=== PATIENT | female | born 1990 | race Caucasian/White ===

== ENCOUNTER 2016-11-09 05:10 | Emergency (ER) | payer OTHER, MEDICAID ==
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
[2016-11-09 10:14] VITALS: BP 97/57
--- NOTE | 2016-11-09 17:25 | US ---
Limited obstetrical ultrasound: Multiple real-time images were obtained transabdominally. Comparison: No previous obstetrical ultrasound. Dates: Current ultrasound: [facility] 03/22/17, gestational age 21 weeks 0 days presentation: Mobile Placenta: Posterior, no findings of placenta previa or abruption. Amniotic fluid: ERIN 11.96 cm Measurements: BPD: 4.79 cm - 20 weeks 4 days Head circumference: 18.12 cm - 20 weeks 4 days Abdominal circumference: 15.92 cm - 21 weeks 1 day Femur length: 3.56 cm - 21 weeks 2 days Estimated weight: 396 g (0 lbs. 14 oz.), estimated weight at the 48th percentile for age by current ultrasound Heart rate: 148 bpm Cervical length: 3.5 cm Impression: 1. Single intrauterine fetus in mobile presentation. Dates as noted above. 2. No acute abnormality is seen. Diagnostic code #1 I agree with preliminary report issued by [facility] (report finalized on 11/09/16, 7:42 AM Central Time)
== END 2016-11-09 06:50 | disposition home or self-care (01) ==
LOC: JD.ED 05:10
DX: O9A.212 Injury, poisoning and certain other consequences of external causes complicating pregnancy, second trimester (principal); S01.412A Laceration without foreign body of left cheek and temporomandibular area, initial encounter; S16.1XXA Strain of muscle, fascia and tendon at neck level, initial encounter; S60.512A Abrasion of left hand, initial encounter; S60.511A Abrasion of right hand, initial encounter; F41.9 Anxiety disorder, unspecified; F32.9 Major depressive disorder, single episode, unspecified; F17.210 Nicotine dependence, cigarettes, uncomplicated; Z3A.21 21 weeks gestation of pregnancy; V48.5XXA Car driver injured in noncollision transport accident in traffic accident, initial encounter
CPT/HCPCS: 12011; 76815; 76815-26; 99283; 99284-25

== ENCOUNTER 2017-03-02 07:11 | Inpatient (IN) | payer MEDICAID, OTHER ==
[2017-03-02] MEDS ORDERED: Nalbuphine 20 MG/1 ML Amp IVPUSH PRN (07:20)
[2017-03-02] MEDS ORDERED: Sodium Chloride 0.9% 10 ML Syringe FLUSH PRN (07:20)
[2017-03-02] MEDS ORDERED: Ondansetron 4 MG/2 ML SDV IVPUSH PRN (07:20)
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
[2017-03-02] MEDS ORDERED: Oxytocin/Lactated Ringers 10 UNIT/1,000 ML BAG IV SCH ×2 (07:30)
[2017-03-02] MEDS: Lactated Ringers 1,000 ML IV SCH ×3 (08:09→14:09)
--- NOTE | 2017-03-02 12:11 | PCM.PNLD ---
Labor Progress Note - VS & Meds Vital Signs: Last Vital Signs Temp 36.9 C 03/02/17 07:21 Pulse 94 03/02/17 07:21 Resp 18 03/02/17 07:21 BP 101/60 03/02/17 07:21 Pulse Ox 97 03/02/17 07:21 Active Medications: Current Medications Lactated Ringer's (Ringers, Lactated) 1,000 mls @ 40 mls/hr IV ASDIRECTED KSENIA Last Admin: 03/02/17 08:09 Dose: 40 mls/hr Oxytocin/Lactated Ringer's (Pitocin In Lr 10 Units/1,000 Ml) 10 unit in 1,000 mls @ 500 mls/hr IV .CONTINUOUS KSENIA Oxytocin/Lactated Ringer's (Pitocin In Lr 10 Units/1,000 Ml) 10 unit in 1,000 mls @ 12 mls/hr IV TITRATE KSENIA; 2 MUNITS/MIN PRN Reason: Protocol Last Titration: 03/02/17 11:55 Dose: 8 munits/min, 48 mls/hr Nalbuphine HCl (Nubain) 10 mg IVPUSH Q2H PRN PRN Reason: Pain (moderate 4-6) Ondansetron HCl (Zofran) 4 mg IVPUSH Q4H PRN PRN Reason: Nausea/Vomiting Sodium Chloride (Saline Flush) 10 ml FLUSH ASDIRECTED PRN PRN Reason: Keep Vein Open - Uterine Contractions Uterine Monitoring Mode: External Frederic Contraction Intensity: Moderate Uterine Resting Tone: Soft - Monitoring Monitor Mode: External Ultrasound Heart Rate (FHR) Variability: Moderate (6-25 bmp) Accelerations: Present, 15x15 Decelerations: None Strip Review: Category I - Vaginal Exam Dilation (cm): 3 Effacement (Percent): 80 Station: 0 Cervical Position: Midposition - Labor Progress (Free Text) Labor Progress: Patient doing well. Pitocin at 6. AROM done with release of clear fluid. Continue present management.
[2017-03-02] MEDS ORDERED: ePHEDrine 50 MG/ML SDV IVPUSH PRN (13:24)
[2017-03-02] MEDS ORDERED: diphenhydrAMINE 50 MG/ML SDV IVPUSH PRN (13:24)
[2017-03-02] MEDS ORDERED: fentaNYL 100 MCG/2 ML SDV EPIDUR PRN (13:24)
[2017-03-02] MEDS ORDERED: Bupivacaine/fentaNYL/NS 100 ML Bag EPIDUR SCH (13:30)
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
--- NOTE | 2017-03-02 17:40 | PCM.DEL ---
L & D Note - General Info Date of Service: 03/02/17 - Delivery Note Labor: Induced by ARM, Induced by Oxytocin Delivery Outcome: Livebirth Infant Delivery Method: Spontaneous Vaginal Delivery Infant Delivery Mode: Spontaneous Presentation: Left Occiput Anterior (REUBEN) Nuchal Cord: None Anesthesia Type: Epidural Amniotic Fluid Description: Clear Episiotomy Type: None Laceration: 2nd Degree, Labial (right side) Suture type: Vicryl Suture size: 3-0 Placenta: Intact, Spontaneous Cord: 3 Vessels Estimated Blood Loss: 250 Resuscitation Needed: Yes : Suctioned, Bulb Syringe, Stimulated, Warmed, [place] Used, Warmer Used Score 1 min: 8 Score 5 min: 9 Delivery Comments (Free Text/Narrative):: Patient found to be complete and began pushing. With maternal pushing effort head delivered from an REUBEN presentation. No nuchal cord present. With gentle downward traction the shoulders and body delivered. Infant placed on maternal abdomen. Cord clamped and cut. Cord blood obtained. Placenta allowed time to separate and then expelled. Inspection of the perineum showed a 2nd degree labia laceration repaired with a 3-0 vicryl. Due to IUGR concerns cord segment sent to lab and placenta sent to pathology for evaluation - Patient Data Vitals - Most Recent: Last Vital Signs Temp 36.9 C 03/02/17 07:21 Pulse 94 03/02/17 07:21 Resp 18 03/02/17 13:51 BP 101/60 03/02/17 07:21 Pulse Ox 97 03/02/17 13:51 Weight - Most Recent: 62.596 kg I&O - Last 24 Hours: Intake & Output 03/02/17 03/02/17 03/02/17 06:59 14:59 22:59 Intake Total 1999 1600 Balance 1999 1600 Lab Results Last 24 Hours: Laboratory Results - last 24 hr 03/02/17 03/02/17 Range/Units 07:35 07:35 WBC 13.08 H (3.98-10.04) K/mm3 RBC 3.89 L (3.98-5.22) M/mm3 Hgb 11.7 (11.2-15.7) gm/L Hct 34.4 (34.1-44.9) % MCV 88.4 (79.4-94.8) fl MCH 30.1 (25.6-32.2) pg MCHC 34.0 (32.2-35.5) g/dl RDW Std Deviation 39.7 (36.4-46.3) fL Plt Count 239 (182-369) K/mm3 MPV 10.6 (9.4-12.3) fl Blood Type B NEGATIVE Gel Antibody Screen Positive Med Orders - Current: Current Medications Diphenhydramine HCl (Benadryl) 25 mg IVPUSH Q6H PRN PRN Reason: pruritis Ephedrine Sulfate (Ephedrine Sulfate) 5 mg IVPUSH ASDIRECTED PRN PRN Reason: Hypotension Fentanyl (Sublimaze) 100 mcg EPIDUR Q3H PRN PRN Reason: Pain Last Admin: 03/02/17 13:52 Dose: 100 mcg Fentanyl/Bupivacaine HCl (Fentanyl/Bupivacaine/Ns 2 Mcg-0.125% 100 Ml) 100 ml EPIDUR ASDIRECTED KSENIA Last Admin: 03/02/17 13:52 Dose: 100 ml Lactated Ringer's (Ringers, Lactated) 1,000 mls @ 40 mls/hr IV ASDIRECTED KSENIA Last Admin: 03/02/17 14:09 Dose: 40 mls/hr Oxytocin/Lactated Ringer's (Pitocin In Lr 10 Units/1,000 Ml) 10 unit in 1,000 mls @ 500 mls/hr IV .CONTINUOUS KSENIA Oxytocin/Lactated Ringer's (Pitocin In Lr 10 Units/1,000 Ml) 10 unit in 1,000 mls @ 12 mls/hr IV TITRATE KSENIA; 2 MUNITS/MIN PRN Reason: Protocol Last Titration: 03/02/17 16:29 Dose: 6 munits/min, 36 mls/hr Nalbuphine HCl (Nubain) 10 mg IVPUSH Q2H PRN PRN Reason: Pain (moderate 4-6) Ondansetron HCl (Zofran) 4 mg IVPUSH Q4H PRN PRN Reason: Nausea/Vomiting Sodium Chloride (Saline Flush) 10 ml FLUSH ASDIRECTED PRN PRN Reason: Keep Vein Open - Problem List & Annotations (1) 37 weeks gestation of SNOMED Code(s): 03349009 Code(s): Z3A.37 - 37 WEEKS GESTATION OF Status: Acute Current Visit: Yes (2) IUGR (intrauterine growth restriction) SNOMED Code(s): 86151849 Code(s): QQO4205 - Status: Acute Current Visit: Yes (3) Rh negative state in antepartum period SNOMED Code(s): 969626262, 908963795 Code(s): O09.899 - SUPERVISION OF OTHER HIGH RISK PREGNANCIES, UNSP TRIMESTER Status: Acute Current Visit: Yes (4) Rubella non-immune status, antepartum SNOMED Code(s): 921151623 Code(s): O99.89 - OTH DISEASES AND CONDITIONS COMPL PREG/CHLDBRTH; Z28.3 - UNDERIMMUNIZATION STATUS Status: Acute Current Visit: Yes (5) Schizophrenia SNOMED Code(s): 16149037 Code(s): F20.9 - SCHIZOPHRENIA, UNSPECIFIED Status: Acute Current Visit: No Qualifiers: Schizophrenia type: unspecified Qualified Code(s): F20.9 - Schizophrenia, unspecified (6) Vaginal delivery SNOMED Code(s): 714813117 Code(s): O80 - ENCOUNTER FOR FULL-TERM UNCOMPLICATED DELIVERY Status: Acute Current Visit: Yes - Problem List Review Problem List Initiated/Reviewed/Updated: Yes - My Orders Last 24 Hours: My Active Orders 03/02/17 07:20 Nalbuphine [Nubain] 10 mg IVPUSH Q2H PRN Ondansetron [Zofran] 4 mg IVPUSH Q4H PRN Sodium Chloride 0.9% [Saline Flush] 10 ml FLUSH ASDIRECTED PRN Resuscitation Status Routine 03/02/17 07:21 Patient Status [ADT] Routine Communication Order [RC] ASDIRECTED Communication Order [RC] ASDIRECTED Communication Order [RC] ASDIRECTED Notify Provider [RC] ASDIRECTED Notify Provider [RC] PRN Peripheral IV Care [RC] . DIRECTED Vaginal Exam [RC] ASDIRECTED Vital Signs [RC] ASDIRECTED Electronic Heart Tones Internal [WOMSER] Per Unit Routine Peripheral IV Insertion Adult [OM.PC] Routine 03/02/17 07:30 Lactated Ringers [Ringers, Lactated] 1,000 ml IV ASDIRECTED Oxytocin/Lactated Ringers [Pitocin in LR 10 Units/1,000 ML] 10 unit in 1,000 ml IV .CONTINUOUS Oxytocin/Lactated Ringers [Pitocin in LR 10 Units/1,000 ML] 10 unit in 1,000 ml IV TITRATE 03/02/17 07:35 ANTIBODY IDENTIFICATION [BBK] Routine TYPE AND SCREEN [BBK] Routine 03/02/17 16:25 Consult to Rn Hedis [CONS] Routine 03/02/17 17:35 Patient Status Manage Transfer [TRANSFER] Routine 03/02/17 Breakfast Regular Diet [DIET] - Assessment Assessment:: 26 y/o G2 now P1011 PPD#0 from at 37 4/7 wks - Plan Plan:: * Routine cares * Cord collection to evaluate for IUGR along with placenta evaluation by pathology * RH negative, will assess blood type after delivery of baby to see if Rhogam indicated * MMR after delivery * Discharge home in 2 days
[2017-03-02] MEDS ORDERED: Acetaminophen 325 MG Tab PO PRN (17:53)
[2017-03-02] MEDS ORDERED: Lanolin 100% Cream 7 GM Tube TOP PRN (17:53)
[2017-03-02] MEDS ORDERED: Witch Hazel Medicated Pads 100/Jar TOP PRN (17:53)
[2017-03-02] MEDS ORDERED: Ibuprofen 600 MG Tab PO PRN (17:53)
[2017-03-02] MEDS ORDERED: Benzocaine/Menthol 20%-0.5% Spray 56 GM Canister TOP PRN (17:53)
[2017-03-02] MEDS ORDERED: Oxytocin/Lactated Ringers 10 UNIT/1,000 ML BAG IV ONE (18:06)
--- NOTE | 2017-03-03 06:37 | PCM.PNPP ---
- General Info Date of Service: 03/03/17 Functional Status: Reports: Pain Controlled, Tolerating Diet, Ambulating, Urinating - Review of Systems General: Reports: No Symptoms HEENT: Reports: Other (dental/tooth pain) Pulmonary: Reports: No Symptoms Cardiovascular: Reports: No Symptoms Gastrointestinal: Reports: No Symptoms Genitourinary: Reports: No Symptoms Musculoskeletal: Reports: No Symptoms - Patient Data Vital Signs - Most Recent: Last Vital Signs Temp 36.3 C 03/03/17 04:28 Pulse 78 03/03/17 04:28 Resp 15 03/03/17 04:28 BP 101/65 03/03/17 04:28 Pulse Ox 97 03/03/17 04:28 Weight - Most Recent: 62.596 kg I&O - Last 24 Hours: Intake & Output 03/02/17 03/02/17 03/03/17 14:59 22:59 06:59 Intake Total 1999 3100 Balance 1999 3100 Lab Results - Last 24 Hours: Laboratory Results - last 24 hr 03/02/17 03/02/17 Range/Units 07:35 07:35 WBC 13.08 H (3.98-10.04) K/mm3 RBC 3.89 L (3.98-5.22) M/mm3 Hgb 11.7 (11.2-15.7) gm/L Hct 34.4 (34.1-44.9) % MCV 88.4 (79.4-94.8) fl MCH 30.1 (25.6-32.2) pg MCHC 34.0 (32.2-35.5) g/dl RDW Std Deviation 39.7 (36.4-46.3) fL Plt Count 239 (182-369) K/mm3 MPV 10.6 (9.4-12.3) fl Blood Type B NEGATIVE Gel Antibody Screen Positive Med Orders - Current: Current Medications Acetaminophen (Tylenol) 650 mg PO Q4H PRN PRN Reason: mild pain or fever Benzocaine/Menthol (Dermoplast Pain Relief [place]) 0 gm TOP ASDIRECTED PRN PRN Reason: Perineal Comfort Measure Last Admin: 03/02/17 18:38 Dose: 1 applic Emollient Ointment (Lansinoh Hpa) 0 gm TOP ASDIRECTED PRN PRN Reason: Sore Nipples Ibuprofen (Motrin) 600 mg PO Q6H PRN PRN Reason: Mild pain or fever Measles/Mumps/Rubella Vaccine Live (M-M-R Ii Vaccine) 0.5 ml SUBCUT .ONCE ONE Stop: 03/03/17 09:01 Oracio Srivastava (Tegan) 1 pad TOP ASDIRECTED PRN PRN Reason: Hemorrhoid pain Last Admin: 03/02/17 18:38 Dose: 1 applic Discontinued Medications Diphenhydramine HCl (Benadryl) 25 mg IVPUSH Q6H PRN PRN Reason: pruritis Ephedrine Sulfate (Ephedrine Sulfate) 5 mg IVPUSH ASDIRECTED PRN PRN Reason: Hypotension Fentanyl (Sublimaze) 100 mcg EPIDUR Q3H PRN PRN Reason: Pain Last Admin: 03/02/17 13:52 Dose: 100 mcg Fentanyl/Bupivacaine HCl (Fentanyl/Bupivacaine/Ns 2 Mcg-0.125% 100 Ml) 100 ml EPIDUR ASDIRECTED KSENIA Last Admin: 03/02/17 13:52 Dose: 100 ml Lactated Ringer's (Ringers, Lactated) 1,000 mls @ 40 mls/hr IV ASDIRECTED KSENIA Last Admin: 03/02/17 14:09 Dose: 40 mls/hr Oxytocin/Lactated Ringer's (Pitocin In Lr 10 Units/1,000 Ml) 10 unit in 1,000 mls @ 500 mls/hr IV .CONTINUOUS KSENIA Last Admin: 03/02/17 18:31 Dose: 500 mls/hr Oxytocin/Lactated Ringer's (Pitocin In Lr 10 Units/1,000 Ml) 10 unit in 1,000 mls @ 12 mls/hr IV TITRATE KSENIA; 2 MUNITS/MIN PRN Reason: Protocol Last Titration: 03/02/17 16:29 Dose: 6 munits/min, 36 mls/hr Oxytocin/Lactated Ringer's (Pitocin In Lr 10 Units/1,000 Ml) Confirm Administered Dose 10 unit in 1,000 mls @ as directed IV .STK-MED ONE Stop: 03/02/17 18:07 Last Admin: 03/02/17 20:43 Dose: Not Given Nalbuphine HCl (Nubain) 10 mg IVPUSH Q2H PRN PRN Reason: Pain (moderate 4-6) Ondansetron HCl (Zofran) 4 mg IVPUSH Q4H PRN PRN Reason: Nausea/Vomiting Sodium Chloride (Saline Flush) 10 ml FLUSH ASDIRECTED PRN PRN Reason: Keep Vein Open - Infant Interaction Disposition, : [place] in Room with Family Interaction: Holding Infant Feeding: Bottle Fed Infant Support Person: Mother - Recovery Exam Fundal Tone: Firm Fundal Level: 1 Fingerbreadths Below Umbilicus Fundal Placement: Midline Lochia Amount: Small, Moderate Lochia Color: Rubra/Red Perineum Description: Other (see below) Other Perinuem Description: 2nd degree with repair Episiotomy/Laceration: Approximated Bladder Status: Voiding Urinary Elimination: Voided - Exam General: Alert, Oriented, Cooperative GI/Abdominal Exam: Soft, Non-Tender Extremities: Normal Inspection Skin: Warm, Dry, Intact - Problem List & Annotations (1) 37 weeks gestation of SNOMED Code(s): 33930115 Code(s): Z3A.37 - 37 WEEKS GESTATION OF Status: Acute Current Visit: Yes (2) IUGR (intrauterine growth restriction) SNOMED Code(s): 26132668 Code(s): XVF0342 - Status: Acute Current Visit: Yes (3) Rh negative state in antepartum period SNOMED Code(s): 816018704, 284944856 Code(s): O09.899 - SUPERVISION OF OTHER HIGH RISK PREGNANCIES, UNSP TRIMESTER Status: Acute Current Visit: Yes (4) Rubella non-immune status, antepartum SNOMED Code(s): 583434147 Code(s): O99.89 - OTH DISEASES AND CONDITIONS COMPL PREG/CHLDBRTH; Z28.3 - UNDERIMMUNIZATION STATUS Status: Acute Current Visit: Yes (5) Schizophrenia SNOMED Code(s): 90748620 Code(s): F20.9 - SCHIZOPHRENIA, UNSPECIFIED Status: Acute Current Visit: No Qualifiers: Schizophrenia type: unspecified Qualified Code(s): F20.9 - Schizophrenia, unspecified (6) Vaginal delivery SNOMED Code(s): 933402295 Code(s): O80 - ENCOUNTER FOR FULL-TERM UNCOMPLICATED DELIVERY Status: Acute Current Visit: Yes - Problem List Review Problem List Initiated/Reviewed/Updated: Yes - My Orders Last 24 Hours: My Active Orders 03/02/17 07:20 Resuscitation Status Routine 03/02/17 07:21 Vaginal Exam [RC] ASDIRECTED 03/02/17 07:35 ANTIBODY IDENTIFICATION [BBK] Routine TYPE AND SCREEN [BBK] Routine 03/02/17 17:53 Activity as Tolerated [RC] PER UNIT ROUTINE Vital Signs [RC] 04,12,20 Acetaminophen [Tylenol] 650 mg PO Q4H PRN Benzocaine/Menthol [Dermoplast Pain Relief [place]] See Dose Instructions TOP ASDIRECTED PRN Ibuprofen [Motrin] 600 mg PO Q6H PRN Lanolin [Lansinoh HPA] See Dose Instructions TOP ASDIRECTED PRN Witch Carola [Tucks] 1 pad TOP ASDIRECTED PRN Assess Lochia [WOMSER] Per Unit Routine Assess Uterine Involution [WOMSER] Per Unit Routine Breast Pump [WOMSER] Per Unit Routine Heat Therapy [OM.PC] PRN Ice Therapy [OM.PC] Per Unit Routine Perineal Care [OM.PC] Per Unit Routine Peripheral IV Discontinue [OM.PC] Routine Sitz Bath [OM.PC] Per Unit Routine 03/02/17 20:44 Vaccines to be Administered [RC] 0900 03/02/17 Dinner Regular Diet [DIET] 03/03/17 09:00 Measles, Mumps & Rubella [M-M-R II Vaccine] 0.5 ml SUBCUT .ONCE ONE 03/03/17 17:53 Heat Therapy [OM.PC] PRN - Assessment Assessment:: 26 y/o G2 now P1011 PPD#1 from at 37 4/7 wks - Plan Plan:: * Routine cares * Bottle feeding * Baby Rh negative, no need for Rhogam * MMR after delivery * SW to evaluate patient today * Discharge home tomorrow
[2017-03-03] MEDS ORDERED: Measles, Mumps & Rubella Vaccine 0.5 ML SDV SUBCUT ONE (09:00)
[2017-03-03] MEDS: Amoxicillin/Clavulanate K 875-125 MG Tab PO SCH (21:31)
--- NOTE | 2017-03-04 07:28 | PCM.DCSUM1 ---
Discharge Summary - Discharge Data Discharge Date: 03/04/17 Discharge Disposition: Home, Self-Care 01 Condition: Good - Discharge Diagnosis/Problem(s) (1) 37 weeks gestation of SNOMED Code(s): 50939532 ICD Code: Z3A.37 - 37 WEEKS GESTATION OF Status: Acute (2) IUGR (intrauterine growth restriction) SNOMED Code(s): 28902079 ICD Code: SDF8073 - Status: Acute (3) Rh negative state in antepartum period SNOMED Code(s): 144369016, 633499730 ICD Code: O09.899 - SUPERVISION OF OTHER HIGH RISK PREGNANCIES, UNSP TRIMESTER Status: Acute (4) Rubella non-immune status, antepartum SNOMED Code(s): 530252529 ICD Code: O99.89 - OTH DISEASES AND CONDITIONS COMPL PREG/CHLDBRTH; Z28.3 - UNDERIMMUNIZATION STATUS Status: Acute (5) Schizophrenia SNOMED Code(s): 92890936 ICD Code: F20.9 - SCHIZOPHRENIA, UNSPECIFIED Status: Acute Qualifiers: Schizophrenia type: unspecified Qualified Code(s): F20.9 - Schizophrenia, unspecified (6) Vaginal delivery SNOMED Code(s): 270625760 ICD Code: O80 - ENCOUNTER FOR FULL-TERM UNCOMPLICATED DELIVERY Status: Acute - Patient Summary/Data Complications: None Consults: None Recommended Follow-up Testing/Procedures: Follow up in 2-3 weeks Hospital Course: 26 y/o at 37 4/7 wks presented for IOL for concerns of IUGR. This was started with pitocin and eventually AROM. She progressed well and underwent an uncomplicated . See delivery note. she did well and was discharged home on PPD#2 - Patient Instructions Diet: Regular Diet as Tolerated Activity: As Tolerated Activity, Other: Pelvic Rest for 6 weeks Driving: May Drive Today Showering/Bathing: May Shower Showering/Bathing, Other: May Bathe Notify Provider of: Fever, Increased Pain, Swelling and Redness, Drainage, Nausea and/or Vomiting - Discharge Plan Prescriptions/Med Rec: Amoxicillin/Clavulanate K [Augmentin 875 MG/125 MG] 1 tab PO Q12HR #14 tablet Home Medications: Home Meds Amoxicillin/Clavulanate K [Augmentin 875 MG/125 MG] 1 tab PO Q12HR #14 tablet [Rx] Ibuprofen [IJD: Ibuprofen] 600 mg PO Q6H PRN #0 tablet 03/04/17 [Rx] Patient Handouts: Smoking Cessation, Tips for Success, [id number], Smoking Hazards, Vaginal Delivery, Care After Referrals: Genia Ortiz MD [Primary Care Provider] - (3 weeks for mood check) - Discharge Summary/Plan Comment DC Time >30 min.: No - Patient Data Vitals - Most Recent: Last Vital Signs Temp 36.3 C 03/04/17 04:10 Pulse 59 L 03/04/17 04:10 Resp 14 03/04/17 04:10 BP 107/56 L 03/04/17 04:10 Pulse Ox 99 03/04/17 04:10 Weight - Most Recent: 62.596 kg Med Orders - Current: Current Medications Acetaminophen (Tylenol) 650 mg PO Q4H PRN PRN Reason: mild pain or fever Amoxicillin/Clavulanate Potassium (Augmentin 875 Mg/125 Mg) 1 tab PO Q12HR [facility] Last Admin: 03/03/17 21:31 Dose: 1 tab Benzocaine/Menthol (Dermoplast Pain Relief [place]) 0 gm TOP ASDIRECTED PRN PRN Reason: Perineal Comfort Measure Last Admin: 03/02/17 18:38 Dose: 1 applic Emollient Ointment (Lansinoh Hpa) 0 gm TOP ASDIRECTED PRN PRN Reason: Sore Nipples Ibuprofen (Motrin) 600 mg PO Q6H PRN PRN Reason: Mild pain or fever Witch Carola (Tucks) 1 pad TOP ASDIRECTED PRN PRN Reason: Hemorrhoid pain Last Admin: 03/02/17 18:38 Dose: 1 applic Discontinued Medications Diphenhydramine HCl (Benadryl) 25 mg IVPUSH Q6H PRN PRN Reason: pruritis Ephedrine Sulfate (Ephedrine Sulfate) 5 mg IVPUSH ASDIRECTED PRN PRN Reason: Hypotension Fentanyl (Sublimaze) 100 mcg EPIDUR Q3H PRN PRN Reason: Pain Last Admin: 03/02/17 13:52 Dose: 100 mcg Fentanyl/Bupivacaine HCl (Fentanyl/Bupivacaine/Ns 2 Mcg-0.125% 100 Ml) 100 ml EPIDUR ASDIRECTED KSENIA Last Admin: 03/02/17 13:52 Dose: 100 ml Lactated Ringer's (Ringers, Lactated) 1,000 mls @ 40 mls/hr IV ASDIRECTED KSENIA Last Admin: 03/02/17 14:09 Dose: 40 mls/hr Oxytocin/Lactated Ringer's (Pitocin In Lr 10 Units/1,000 Ml) 10 unit in 1,000 mls @ 500 mls/hr IV .CONTINUOUS KSENIA Last Admin: 03/02/17 18:31 Dose: 500 mls/hr Oxytocin/Lactated Ringer's (Pitocin In Lr 10 Units/1,000 Ml) 10 unit in 1,000 mls @ 12 mls/hr IV TITRATE KSENIA; 2 MUNITS/MIN PRN Reason: Protocol Last Titration: 03/02/17 16:29 Dose: 6 munits/min, 36 mls/hr Oxytocin/Lactated Ringer's (Pitocin In Lr 10 Units/1,000 Ml) Confirm Administered Dose 10 unit in 1,000 mls @ as directed IV .STK-MED ONE Stop: 03/02/17 18:07 Last Admin: 03/02/17 20:43 Dose: Not Given Measles/Mumps/Rubella Vaccine Live (M-M-R Ii Vaccine) 0.5 ml SUBCUT .ONCE ONE Stop: 03/03/17 09:01 Nalbuphine HCl (Nubain) 10 mg IVPUSH Q2H PRN PRN Reason: Pain (moderate 4-6) Ondansetron HCl (Zofran) 4 mg IVPUSH Q4H PRN PRN Reason: Nausea/Vomiting Sodium Chloride (Saline Flush) 10 ml FLUSH ASDIRECTED PRN PRN Reason: Keep Vein Open
--- NOTE | 2017-03-04 07:28 | PCM.PNPP ---
- General Info Date of Service: 03/04/17 Functional Status: Reports: Pain Controlled, Tolerating Diet, Ambulating, Urinating - Review of Systems General: Reports: No Symptoms Pulmonary: Reports: No Symptoms Cardiovascular: Reports: No Symptoms Gastrointestinal: Reports: No Symptoms Genitourinary: Reports: No Symptoms - Patient Data Vital Signs - Most Recent: Last Vital Signs Temp 36.3 C 03/04/17 04:10 Pulse 59 L 03/04/17 04:10 Resp 14 03/04/17 04:10 BP 107/56 L 03/04/17 04:10 Pulse Ox 99 03/04/17 04:10 Weight - Most Recent: 62.596 kg Med Orders - Current: Current Medications Acetaminophen (Tylenol) 650 mg PO Q4H PRN PRN Reason: mild pain or fever Amoxicillin/Clavulanate Potassium (Augmentin 875 Mg/125 Mg) 1 tab PO Q12HR KSENIA Last Admin: 03/03/17 21:31 Dose: 1 tab Benzocaine/Menthol (Dermoplast Pain Relief [place]) 0 gm TOP ASDIRECTED PRN PRN Reason: Perineal Comfort Measure Last Admin: 03/02/17 18:38 Dose: 1 applic Emollient Ointment (Lansinoh Hpa) 0 gm TOP ASDIRECTED PRN PRN Reason: Sore Nipples Ibuprofen (Motrin) 600 mg PO Q6H PRN PRN Reason: Mild pain or fever Witch Carola (Tucks) 1 pad TOP ASDIRECTED PRN PRN Reason: Hemorrhoid pain Last Admin: 03/02/17 18:38 Dose: 1 applic Discontinued Medications Diphenhydramine HCl (Benadryl) 25 mg IVPUSH Q6H PRN PRN Reason: pruritis Ephedrine Sulfate (Ephedrine Sulfate) 5 mg IVPUSH ASDIRECTED PRN PRN Reason: Hypotension Fentanyl (Sublimaze) 100 mcg EPIDUR Q3H PRN PRN Reason: Pain Last Admin: 03/02/17 13:52 Dose: 100 mcg Fentanyl/Bupivacaine HCl (Fentanyl/Bupivacaine/Ns 2 Mcg-0.125% 100 Ml) 100 ml EPIDUR ASDIRECTED [facility] Last Admin: 03/02/17 13:52 Dose: 100 ml Lactated Ringer's (Ringers, Lactated) 1,000 mls @ 40 mls/hr IV ASDIRECTED [facility] Last Admin: 03/02/17 14:09 Dose: 40 mls/hr Oxytocin/Lactated Ringer's (Pitocin In Lr 10 Units/1,000 Ml) 10 unit in 1,000 mls @ 500 mls/hr IV .CONTINUOUS KSENIA Last Admin: 03/02/17 18:31 Dose: 500 mls/hr Oxytocin/Lactated Ringer's (Pitocin In Lr 10 Units/1,000 Ml) 10 unit in 1,000 mls @ 12 mls/hr IV TITRATE KSENIA; 2 MUNITS/MIN PRN Reason: Protocol Last Titration: 03/02/17 16:29 Dose: 6 munits/min, 36 mls/hr Oxytocin/Lactated Ringer's (Pitocin In Lr 10 Units/1,000 Ml) Confirm Administered Dose 10 unit in 1,000 mls @ as directed IV .STK-MED ONE Stop: 03/02/17 18:07 Last Admin: 03/02/17 20:43 Dose: Not Given Measles/Mumps/Rubella Vaccine Live (M-M-R Ii Vaccine) 0.5 ml SUBCUT .ONCE ONE Stop: 03/03/17 09:01 Nalbuphine HCl (Nubain) 10 mg IVPUSH Q2H PRN PRN Reason: Pain (moderate 4-6) Ondansetron HCl (Zofran) 4 mg IVPUSH Q4H PRN PRN Reason: Nausea/Vomiting Sodium Chloride (Saline Flush) 10 ml FLUSH ASDIRECTED PRN PRN Reason: Keep Vein Open - Infant Interaction Infant Disposition, : in Room with Family Interaction: Holding Infant Feeding: Bottle Fed Support Person: Mother - Recovery Exam Fundal Tone: Firm Fundal Level: 2 Fingerbreadths Below Umbilicus Fundal Placement: Midline Lochia Amount: Small Lochia Color: Rubra/Red Perineum Description: Intact, Minimal Bruising/Swelling Other Perinuem Description: 2nd degree with repair Episiotomy/Laceration: Approximated Bladder Status: Voiding Urinary Elimination: Voided - Exam General: Alert, Oriented GI/Abdominal Exam: Soft, Non-Tender Extremities: Normal Inspection Skin: Warm, Dry, Intact - Problem List & Annotations (1) 37 weeks gestation of SNOMED Code(s): 20810498 Code(s): Z3A.37 - 37 WEEKS GESTATION OF Status: Acute (2) IUGR (intrauterine growth restriction) SNOMED Code(s): 17433458 Code(s): ILR0521 - Status: Acute (3) Rh negative state in antepartum period SNOMED Code(s): 281109552, 768440604 Code(s): O09.899 - SUPERVISION OF OTHER HIGH RISK PREGNANCIES, UNSP TRIMESTER Status: Acute (4) Rubella non-immune status, antepartum SNOMED Code(s): 421310151 Code(s): O99.89 - OTH DISEASES AND CONDITIONS COMPL PREG/CHLDBRTH; Z28.3 - UNDERIMMUNIZATION STATUS Status: Acute (5) Schizophrenia SNOMED Code(s): 27776813 Code(s): F20.9 - SCHIZOPHRENIA, UNSPECIFIED Status: Acute Qualifiers: Schizophrenia type: unspecified Qualified Code(s): F20.9 - Schizophrenia, unspecified (6) Vaginal delivery SNOMED Code(s): 008493941 Code(s): O80 - ENCOUNTER FOR FULL-TERM UNCOMPLICATED DELIVERY Status: Acute - Problem List Review Problem List Initiated/Reviewed/Updated: Yes - My Orders Last 24 Hours: My Active Orders 03/03/17 17:00 Amoxicillin/Clavulanate K [Augmentin 875 MG/125 MG] 1 tab PO Q12HR 03/03/17 17:53 Heat Therapy [OM.PC] PRN 03/04/17 07:28 Ready for Discharge [RC] PER UNIT ROUTINE - Assessment Assessment:: 26 y/o G2 now P1011 PPD#2 from at 37 4/7 wks - Plan Plan:: * Routine cares * Bottle feeding * Baby Rh negative, no need for Rhogam * MMR after delivery * SW has arranged appointments/follow up for patient * Discharge home today
[2017-03-04] MEDS: Amoxicillin/Clavulanate K 875-125 MG Tab PO SCH ×2 (10:01)
[2017-03-04 11:33] VITALS: BP 110/68
== END 2017-03-04 13:15 | disposition home or self-care (01) | DRG 775 ==
LOC: JD.OB 07:11 → OBSVTOIN 17:16
PROVIDERS: ADMIT Obstetrics & Gynecology; ATTEND Obstetrics & Gynecology
PROC: 4A1HXCZ Monitoring of Products of Conception, Cardiac Rate, External Approach (ICD-10-PCS; principal; 2017-03-02)
PROC: 10E0XZZ Delivery of Products of Conception, External Approach (ICD-10-PCS; principal; 2017-03-02)
PROC: 10907ZC Drainage of Amniotic Fluid, Therapeutic from Products of Conception, Via Natural or Artificial Opening (ICD-10-PCS; principal; 2017-03-02)
PROC: 0KQM0ZZ Repair Perineum Muscle, Open Approach (ICD-10-PCS; principal; 2017-03-02)
PROC: 3E033VJ Introduction of Other Hormone into Peripheral Vein, Percutaneous Approach (ICD-10-PCS; principal; 2017-03-02)
DX: O36.5930 Maternal care for other known or suspected poor fetal growth, third trimester, not applicable or unspecified (principal); O70.1 Second degree perineal laceration during delivery; O99.344 Other mental disorders complicating childbirth; F20.9 Schizophrenia, unspecified; O99.334 Smoking (tobacco) complicating childbirth; F17.210 Nicotine dependence, cigarettes, uncomplicated; Z3A.37 37 weeks gestation of pregnancy; Z37.0 Single live birth
CPT/HCPCS: 01967; 36415; 85027; 86850; 86870; 86900; 86901; 90707; A9270-GY; J2590; J3010; J7120